=== PATIENT | male | born 1965 | race Caucasian/White ===

== ENCOUNTER 2016-09-05 17:43 | Emergency (ER) | payer SELFPAY ==
[~2016-09-05] VITALS: Wt 63.5 kg
[~2016-09-05 17:43] MED LIST: ANUSOL-HC25 MG R; HYDROCODONE BIT1 T11 PO; NAPROSYN500 MG PO
[2016-09-05] MEDS ORDERED: PREDNISONE20 M1 PO (18:56)
[2016-09-05] MEDS ORDERED: LEVOFLOXACIN500 MG PO (18:56)
== END 2016-09-05 19:12 | disposition home or self-care (01) ==
LOC: ED 17:43
DX: J44.1 Chronic obstructive pulmonary disease with (acute) exacerbation (principal); R04.2 Hemoptysis; F17.200 Nicotine dependence, unspecified, uncomplicated; E53.8 Deficiency of other specified B group vitamins; E78.00 Pure hypercholesterolemia, unspecified; I25.2 Old myocardial infarction; Z88.0 Allergy status to penicillin; Z98.890 Other specified postprocedural states

== ENCOUNTER → 2016-09-21 | Outpatient (CLI) | payer SELFPAY ==
[~2016-09-21] MED LIST changes: +LEVOFLOXACIN500 MG PO; +PREDNISONE20 M1 PO
== END | disposition home or self-care (01) ==
LOC: RESCLI 03:51
DX: I25.110 Atherosclerotic heart disease of native coronary artery with unstable angina pectoris (principal); I10 Essential (primary) hypertension; E78.5 Hyperlipidemia, unspecified; J84.10 Pulmonary fibrosis, unspecified; J44.9 Chronic obstructive pulmonary disease, unspecified; Z87.891 Personal history of nicotine dependence

== ENCOUNTER → 2016-09-24 | Outpatient (CLI) | payer SELFPAY ==
[2016-09-24 07:32] LABS: HEMOGLOBIN 14.3 g/dl (14.0-18.0); MEAN CELL VOLUME 93.7 fl (80.0-94.0); MEAN CORPUSCULAR HGB 31.2 pg (27.0-31.0); MEAN CORPUSCULAR HGB CONC 33.3 g/dl (33.0-37.0); MEAN PLATELET VOLUME 9.7 fl (9.6-12.3); RED BLOOD COUNT 4.59 10*6/uL (4.50-5.90); RED CELL DISTRI WIDTH 13.1 % (0-14.5); WHITE BLOOD COUNT 3.9 10*3/uL (4.8-10.8)
[2016-09-24 07:57] LABS: ALBUMIN 3.7 gm/dl (3.1-4.5); ALKALINE PHOSPHATASE 52 U/L (45-117); BILIRUBIN, TOTAL 0.9 mg/dl (0.2-1.0); BUN 10 mg/dl (7-24); CARBON DIOXIDE 31 mmol/L (21-32); CHLORIDE 104 mmol/L (98-107); CHOLESTEROL 193 mg/dL (<200); EST GLOM FILT AFRICAN AMERICAN > 60 ml/min; GLUCOSE 92 mg/dL (65-99); HDL CHOLESTEROL 63 mg/dl (40-60); LDL CHOLESTEROL 119 mg/dL (9-159); POTASSIUM 3.9 mmol/L (3.5-5.1); SGOT/AST 15 IU/L (3-35); SGPT/ALT 18 U/L (12-78); SODIUM 138 mmol/L (136-145); TOTAL PROTEIN 6.8 gm/dL (6.4-8.2); TRIGLYCERIDES 57 mg/dl (<150); VLDL CHOLESTEROL 11 mg/dL (6-40)
[2016-09-24 07:59] LABS: HEMOGLOBIN A1c 5.8 % (4.8-5.6)
== END | disposition home or self-care (01) ==
LOC: LAB 07:12
PROVIDERS: Internal Medicine
DX: I25.110 Atherosclerotic heart disease of native coronary artery with unstable angina pectoris (principal)

== ENCOUNTER → 2016-09-28 | Outpatient (CLI) | payer SELFPAY ==
[~2016-09-28] MED LIST changes: +ASPIRIN CHEWABL81 MG PO; +ISOSORBIDE MONO30 MG PO; +LIPITOR80 MG PO; +LISINOPRIL5 MG PO; +PROAIR HFA8.5 GM INH
--- NOTE | ~2016-09-28 | ST ---
[place], [place] EXERCISE STRESS TEST REPORT NAME: [id number] UNIT #: [id number] ROOM: DOCTOR: TONO ROMEO DO BIRTHDATE: [birth year] DOS: 09/28/2016 LEXISCAN STRESS TEST REPORT INDICATIONS: 1. Chest pain for Lexiscan. 2. Pharmacological stress. The patient was given 0.4 mg of IV Lexiscan followed by nuclear injection of 40 seconds in a 2 minute recovery. The test was terminated due to completion. 1. Performance: Baseline heart rate was 63. Baseline blood pressure was 120/78 at 2 minutes, pulse was 90 at 2 minutes, blood pressure was 110/64. 2. EKG response: His baseline was normal sinus rhythm. Stress response was negative with rare PVCs. 3. Clinical response: The patient had mild shortness of breath, otherwise no other symptoms. Interpretation is normal stress test. Await Dr. Segovia to read the pending nuclear imaging. Tono Romeo DO DEBORAH JEFFERS MD CM:STRESS:EXERCISE STRESS TEST REPORT [id number] TONO ROMEO DO
--- NOTE | ~2016-09-28 | ST ---
[place], [place] EXERCISE STRESS TEST REPORT NAME: ADIEL NARAYANAN UNIT #: [id number] ROOM: DOCTOR: DEBORAH JEFFERS MD BIRTHDATE: [birth year] DOS: 09/28/2016 ADDENDUM Addendum to Tono Romeo's stress test report. I agree with the dictation. I was present in the room with the patient. DEBORAH JEFFERS MD CM:STRESS:EXERCISE STRESS TEST REPORT [id number] DEBORAH JEFFERS MD
== END | disposition home or self-care (01) ==
LOC: CARD 02:32
DX: I25.110 Atherosclerotic heart disease of native coronary artery with unstable angina pectoris (principal); R53.81 Other malaise; R07.9 Chest pain, unspecified

== ENCOUNTER 2023-07-16 12:45 | Emergency (ER) | payer OTHER ==
[~2023-07-16] VITALS: Ht 182.8 cm; Wt 63.5 kg
[2023-07-16 13:53] LABS: BASO % 0.5 % (0.0-1.0); EOS % 0.7 % (1.0-4.0); HEMATOCRIT 42.9 % (42.0-52.0); LYMPH % 24.1 % (27.0-41.0); MEAN CELL VOLUME 94.9 fl (80.0-94.0); MEAN CORPUSCULAR HGB CONC 34.7 g/dl (33.0-37.0); MEAN PLATELET VOLUME 9.8 fl (9.6-12.3); MONO # 0.6 10*3/uL (0.1-1.0); MONO % 15.5 % (3.0-9.0); NEUT # 2.4 10*3/uL (2.3-7.9); PLATELET COUNT AUTOMATED 213 10*3/uL (130-400); RED BLOOD COUNT 4.52 10*6/uL (4.50-5.90); RED CELL DISTRI WIDTH 12.5 % (0-14.5); WHITE BLOOD COUNT 4.1 10*3/uL (4.8-10.8)
[2023-07-16 14:31] LABS: BUN 9 mg/dl (9-23); CHLORIDE 106 mmol/L (98-107); POTASSIUM 3.9 mmol/L (3.4-5.1)
[2023-07-16] MEDS ORDERED: ZESTRIL5 MG PO (16:35)
== END 2023-07-16 16:57 | disposition home or self-care (01) ==
LOC: ED 12:45
PROVIDERS: Internal Medicine
DX: I10 Essential (primary) hypertension (principal); R51.9 Headache, unspecified; I25.2 Old myocardial infarction; E78.00 Pure hypercholesterolemia, unspecified; F17.200 Nicotine dependence, unspecified, uncomplicated; Z88.0 Allergy status to penicillin; Z98.890 Other specified postprocedural states; Z95.5 Presence of coronary angioplasty implant and graft

== ENCOUNTER 2024-04-28 12:32 | Emergency (ER) | payer OTHER ==
[~2024-04-28] VITALS: Ht 182.8 cm; Wt 63.5 kg
[~2024-04-28 12:32] MED LIST changes: +ZESTRIL5 MG PO
[2024-04-28] MEDS ORDERED: PANTOPRAZOLE SO40 MG PO (13:19)
== END 2024-04-28 13:59 | disposition home or self-care (01) ==
LOC: ED 12:32
DX: S63.91XA Sprain of unspecified part of right wrist and hand, initial encounter (principal); I25.2 Old myocardial infarction; E78.00 Pure hypercholesterolemia, unspecified; K21.9 Gastro-esophageal reflux disease without esophagitis; F17.200 Nicotine dependence, unspecified, uncomplicated; Z88.0 Allergy status to penicillin; Z95.5 Presence of coronary angioplasty implant and graft; Z98.890 Other specified postprocedural states; W20.8XXA Other cause of strike by thrown, projected or falling object, initial encounter; Y93.89 Activity, other specified; Y92.89 Other specified places as the place of occurrence of the external cause; Y99.8 Other external cause status

== ENCOUNTER 2024-07-28 16:13 | Emergency (ER) | payer OTHER ==
[~2024-07-28] VITALS: Ht 185.4 cm; Wt 61.2 kg
[~2024-07-28 16:13] MED LIST changes: +PANTOPRAZOLE SO40 MG PO
[2024-07-28] MEDS ORDERED: CLEOCIN HCL300 MG PO (16:38)
[2024-07-28] MEDS ORDERED: CLINDAMYCIN HCL 300 MG CAPSULE PO ONE (16:40)
== END 2024-07-28 16:45 | disposition home or self-care (01) ==
LOC: ED 16:13
DX: S61.230A Puncture wound without foreign body of right index finger without damage to nail, initial encounter (principal); I25.2 Old myocardial infarction; E78.00 Pure hypercholesterolemia, unspecified; K21.9 Gastro-esophageal reflux disease without esophagitis; F17.200 Nicotine dependence, unspecified, uncomplicated; Z88.0 Allergy status to penicillin; Z98.890 Other specified postprocedural states; Z95.5 Presence of coronary angioplasty implant and graft; W54.0XXA Bitten by dog, initial encounter; Y93.89 Activity, other specified; Y92.89 Other specified places as the place of occurrence of the external cause; Y99.8 Other external cause status